=== PATIENT | female | born 1965 | race Caucasian/White ===

== ENCOUNTER 2022-08-06 22:23 | Observation (INO) | payer OTHER ==
[~2022-08-06] VITALS: Ht 160 cm; Wt 84.2 kg
[2022-08-06 22:56] VITALS: BP 84/54
[2022-08-06 23:00] VITALS: BP 99/63
[2022-08-06 23:18] VITALS: BP 119/75
[2022-08-06 23:30] VITALS: BP 108/71
[2022-08-06 23:37] LABS: BASO% 0.3 % (0-3); HEMATOCRIT 49.2 % (37.0-47.0); HEMOGLOBIN 16.3 g/dl (12.0-16.0); IMMATURE GRANULOCYTES 0.2 % (0.0-5.0); LYMPH% 9.3 % (15-41); MEAN CELL VOLUME 96.7 fL CALC (80.0-100.0); MEAN CORPUSCULAR HGB CONC 33.1 g/dL CAL (32.0-36.0); MONO% 5.1 % (2-13); NEUT# 13.11 thou/uL (2.00-7.15); NEUT% 84.1 % (42-76); RED BLOOD COUNT 5.09 mill/uL (4.20-5.60); RED CELL DISTRI WIDTH 11.3 % (11.5-15.5)
[2022-08-06 23:45] VITALS: BP 108/69
[2022-08-06] MEDS ORDERED: LISINOPRIL10 MG PO (23:48)
[2022-08-06] MEDS ORDERED: ATIVAN1 MG PO (23:49)
[2022-08-06] MEDS ORDERED: PEPCID20 MG PO (23:50)
[2022-08-06 23:54] LABS: ALBUMIN 4.4 g/dL (3.2-5.0); BILIRUBIN, TOTAL 0.6 mg/dL (0.02-1.3); CREATININE 1.2 mg/dL (0.5-1.0); POTASSIUM 3.9 mmol/l (3.5-5.1); TOTAL PROTEIN 7.3 g/dL (6.3-8.2)
[2022-08-07] VITALS (17 sets, daily range): BP systolic 87–133; BP diastolic 40–82
[2022-08-07 10:42] LABS: URINE BILIRUBIN - DIPSTICK NEGATIVE (NEGATIVE); URINE BLOOD DIPSTICK NEGATIVE (NEGATIVE); URINE COLOR YELLOW; URINE GLUCOSE - DIPSTICK NEGATIVE (NEGATIVE); URINE KETONE 15 mg/dL (NEGATIVE); URINE LEUK ESTERASE NEGATIVE (NEGATIVE); URINE NITRITE - DIPSTICK NEGATIVE (Negative); URINE PH 5.5 (4.5-8.0); URINE PROTEIN - DIPSTICK NEGATIVE (NEG-TRACE); URINE SPECIFIC GRAVITY >=1.030; URINE UROBILINOGEN - DIPSTICK 0.2 E.U./dL (0.2)
== END 2022-08-07 15:25 | disposition home or self-care (01) | DRG 392 ==
LOC: ED 22:23 → ED-I 08-07 02:05 → ED 08-07 02:22 → MS2 08-07 02:23
PROVIDERS: Emergency Medicine; ADMIT Internal Medicine; ATTEND Internal Medicine
DX: K52.9 Noninfective gastroenteritis and colitis, unspecified (principal); I10 Essential (primary) hypertension; K21.9 Gastro-esophageal reflux disease without esophagitis; F41.9 Anxiety disorder, unspecified; Z20.822 Contact with and (suspected) exposure to COVID-19
CPT/HCPCS: G0378; J1956; S0164